=== PATIENT | female | born 1990 | race Caucasian/White ===

== ENCOUNTER 2016-09-08 13:07 | Emergency (ER) | payer SELFPAY ==
[~2016-09-08] VITALS: Ht 154.9 cm; Wt 46.0 kg
[2016-09-08 13:11] VITALS: BP 96/51
== END 2016-09-08 16:31 | disposition home or self-care (01) ==
LOC: ED 13:07
DX: N10 Acute pyelonephritis (principal)
CPT/HCPCS: J0696